=== PATIENT | male | born 1965 | race African-American/Black ===

== ENCOUNTER 2019-04-23 16:32 | Inpatient (IN) ==
[2019-04-23] MEDS ORDERED: DOCUSATE SODIUM 100 MG CAPSULE PO PRN (19:31)
[2019-04-23] MEDS ORDERED: ACETAMINOPHEN 325 MG TABLET PO PRN (19:31)
[2019-04-23] MEDS ORDERED: ONDANSETRON 4 MG/2 ML VIAL IV PRN (19:31)
[2019-04-23] MEDS ORDERED: MORPHINE 4 MG/1 ML VIAL IV ONE (19:52)
[2019-04-23] MEDS ORDERED: MORPHINE 4 MG/1 ML VIAL ONE (19:56)
[2019-04-23] MEDS ORDERED: LIDOCAINE 2% TOP JELLY 20 ML VIAL INTRAURETH ONE (20:27)
[2019-04-23] MEDS ORDERED: LEVOFLOXACIN INJ 500 MG in PREMIX 1 EACH IV ONE (22:34)
[2019-04-24] MEDS ORDERED: LIDOCAINE 2% 5 ML VIAL ONE (00:52)
[2019-04-24] MEDS ORDERED: SEVOFLURANE 1 UNIT/15 MINUTE INH ONE (00:52)
[2019-04-24] MEDS ORDERED: MIDAZOLAM 2 MG/2 ML VIAL ONE (00:52)
[2019-04-24] MEDS ORDERED: fentaNYL 100 MCG/2 ML VIAL ONE (00:52)
[2019-04-24] MEDS ORDERED: PROPOFOL 200 MG/20 ML VIAL IV ONE (00:52)
[2019-04-24] MEDS ORDERED: PHENYLEPHRINE 1 MG/10 ML SYRINGE IV ONE (00:52)
[2019-04-24] MEDS ORDERED: LACTATED RINGERS 1,000 ML IV ONE (00:53)
[2019-04-24] MEDS: SODIUM CHLORIDE 0.9% 1,000 ML IV SCH ×2 (02:30→12:25)
[2019-04-24 02:41] LABS: Apearance,Urine CLEAR (Clear); Bilirubin,Urine Negative (Negative); Blood, Urine Large mg/dL (Negative); Glucose,Urine (UA) Negative (Negative); Ketones,Urine Negative (Negative); Nitrite,Urine Negative (Negative); Protein,Urine Negative; RBC,Urine 102 /HPF (0-4); Urine Color Colorless (Yellow); Urine Specific Gravity 1.006 (1.001-1.035); Urine Urobilinogen < 2.0 EU/DL (0.2-1.0); WBC,Urine 1 /HPF (0-6)
[2019-04-24 05:35] LABS: Basophils % 0.2 % (0.0-0.8); Eosinophils % 0.4 % (0.00-10.9); Hematocrit 31.3 VOL% (42.0-52.0); Hemoglobin 9.8 GM/DL (14.0-18.0); Immature Granulocytes % 0.1 %; Immature Granulocytes Absolute 0.01 #; Lymphocytes # 2.4 10*3/uL (1.4-4.0); Lymphocytes % 29.7 % (21.2-54.2); Mean Corpuscular HGB Conc 31.3 GM/DL (32-36); Mean Corpuscular Volume 95.4 FL (87-102); Mean Platelet Volume 11.8 FL (9.6-12.0); Neutrophils % 61.6 % (38.7-73.9); Platelet Count 152 T/CUMM (130-400); Red Blood Count 3.28 MC/CUMM (3.8-5.5); Red Cell Distribution Width 12.3 % (9.3-17.3); White Blood Count 8.2 T/CUMM (4-12)
[2019-04-24 06:08] LABS: Calcium 7.8 MG/DL (8.5-10.1); Osmolality,Calculated 316.7 MOS/KG (273-304); Risk Ratio 2.79; Thyroid Stimulating Hormone 2.18 uIU/ml (0.358-3.74); VLDL CHOLESTEROL 9.8 MG/DL
[2019-04-24 06:20] LABS: Alanine Aminotransferase 18 U/L (16-61); Albumin 3.5 G/DL (3.4-5.0); Alkaline Phosphatase 49 U/L (45-117); Aspartate Amino Transferase 13 U/L (0-37); Bilirubin,Direct < 0.100 MG/DL (0.0-0.20); Total Protein 6.5 G/DL (6.4-8.3)
[2019-04-24] MEDS: PANTOPRAZOLE 40 MG TABLET PO SCH (08:53)
[2019-04-24] MEDS: hydrALAZINE 20 MG/1 ML VIAL IV PRN (21:06)
[2019-04-25 06:08] LABS: Basophils % 0.4 % (0.0-0.8); Eosinophils # 0.2 10*3/uL (0.0-0.87); Eosinophils % 2.2 % (0.00-10.9); Hematocrit 35.9 VOL% (42.0-52.0); Hemoglobin 11.5 GM/DL (14.0-18.0); Immature Granulocytes % 0.3 %; Immature Granulocytes Absolute 0.02 #; Lymphocytes # 2.9 10*3/uL (1.4-4.0); Mean Platelet Volume 12.1 FL (9.6-12.0); Monocytes % 8.6 % (1.7-12.7); Neutrophils % 51.5 % (38.7-73.9); Platelet Count 163 T/CUMM (130-400); Red Blood Count 3.82 MC/CUMM (3.8-5.5); Red Cell Distribution Width 12.2 % (9.3-17.3); White Blood Count 7.9 T/CUMM (4-12)
[2019-04-25 06:31] LABS: Calcium 8.8 MG/DL (8.5-10.1); Osmolality,Calculated 290.1 MOS/KG (273-304)
[2019-04-25] MEDS: PANTOPRAZOLE 40 MG TABLET PO SCH (08:55)
[2019-04-25] MEDS: SODIUM CHLORIDE 0.9% 1,000 ML IV SCH ×3 (09:57→21:39)
[2019-04-25] MEDS ORDERED: MAGNESIUM SULF RIDER 2 GM in PREMIX 1 EACH IV PRN (11:01)
[2019-04-25] MEDS ORDERED: MAGNESIUM SULF RIDER 4 GM in PREMIX 1 EACH IV PRN (11:01)
[2019-04-25] MEDS: hydrALAZINE 20 MG/1 ML VIAL IV PRN ×2 (11:50→21:39)
[2019-04-25] MEDS: amLODIPine 5 MG TABLET PO SCH (16:50)
[2019-04-26] MEDS: hydrALAZINE 20 MG/1 ML VIAL IV PRN (03:49)
[2019-04-26 05:32] LABS: Basophils % 0.4 % (0.0-0.8); Eosinophils # 0.4 10*3/uL (0.0-0.87); Eosinophils % 4.9 % (0.00-10.9); Hematocrit 37.8 VOL% (42.0-52.0); Hemoglobin 12.2 GM/DL (14.0-18.0); Immature Granulocytes % 0.2 %; Immature Granulocytes Absolute 0.02 #; Lymphocytes # 2.8 10*3/uL (1.4-4.0); Lymphocytes % 30.7 % (21.2-54.2); Mean Corpuscular HGB Conc 32.3 GM/DL (32-36); Mean Corpuscular Volume 93.6 FL (87-102); Mean Platelet Volume 11.2 FL (9.6-12.0); Neutrophils % 55.8 % (38.7-73.9); Platelet Count 168 T/CUMM (130-400); Red Blood Count 4.04 MC/CUMM (3.8-5.5); Red Cell Distribution Width 12.3 % (9.3-17.3)
[2019-04-26 05:44] LABS: Calcium 8.9 MG/DL (8.5-10.1); Osmolality,Calculated 280.5 MOS/KG (273-304)
[2019-04-26] MEDS: PANTOPRAZOLE 40 MG TABLET PO SCH (09:31)
[2019-04-26] MEDS: amLODIPine 5 MG TABLET PO SCH (09:31)
[2019-04-26] MEDS: SODIUM CHLORIDE 0.9% 1,000 ML IV SCH (09:34)
[2019-04-26 15:53] VITALS: BP 165/99
== END 2019-04-26 19:35 | disposition home or self-care (01) | DRG 697 ==
LOC: SUPCPDRO 18:27 → N.5E 18:27 → SUATTDRO 18:27
PROVIDERS: ADMIT Internal Medicine; ATTEND Internal Medicine

== ENCOUNTER 2022-02-11 13:33 | Inpatient (IN) ==
[2022-02-11] MEDS ORDERED: DEXTROSE 10% 250 ML BAG IV PRN (16:02)
[2022-02-11] MEDS ORDERED: hydrALAZINE 20 MG/1 ML VIAL IV PRN (16:02)
[2022-02-11] MEDS ORDERED: GLUCAGON 1 MG VIAL IM PRN (16:02)
[2022-02-11] MEDS ORDERED: ONDANSETRON 4 MG/2 ML VIAL IV PRN (16:02)
[2022-02-11] MEDS ORDERED: DOCUSATE SODIUM 100 MG CAPSULE PO PRN (16:02)
[2022-02-11] MEDS ORDERED: LIDOCAINE 2% TOP JELLY 20 ML VIAL INTRAURETH ONE (17:59)
[2022-02-11] MEDS: INSULIN LISPRO 100 UNIT/ML SUBCUT SCH ×2 (18:00→21:41)
[2022-02-11 18:23] LABS: Hepatitis B Core IgM Quant 0.33 Index; Hepatitis B Surface Ag Quant < 0.10 Index; Hepatitis B Surface Ag Result Non-Reactive (NonReactive); Hepatitis C Virus Ab Quant 0.02 Index; Hepatitis C Virus Ab Result Non-Reactive (NonReactive)
[2022-02-11] MEDS: ALBUTEROL 2.5 MG/3 ML NEB RESP TX SCH (19:10)
[2022-02-11] MEDS: SODIUM CHLORIDE 0.9% 1,000 ML IV SCH (19:42)
[2022-02-11 23:14] LABS: Bacteria,Urine Occasional /HPF (Few); Mucus,Urine Occasional /LPF (Occasional); RBC,Urine 1 /HPF (0-4); Squamous Epithelial Cell,Urine Occasional /HPF (0-10)
[2022-02-11 23:15] LABS: Bilirubin,Urine Negative (Negative); Blood, Urine Trace mg/dL (Negative); Glucose,Urine (UA) Negative (Negative); Ketones,Urine Negative (Negative); Nitrite,Urine Negative (Negative); Protein,Urine Negative (Negative); Urine Appearance Clear (Clear); Urine Color Yellow (Yellow); Urine Urobilinogen 0.2 eU/dL (<2.0); Urine pH 5.5 (4.5-8.0)
[2022-02-12] MEDS: ALBUTEROL 2.5 MG/3 ML NEB RESP TX SCH ×4 (01:43→19:30)
[2022-02-12 05:53] LABS: Basophils % 0.3 % (0.0-0.8); Eosinophils # 0.1 10*3/uL (0.0-0.87); Eosinophils % 1.4 % (0.00-10.9); Hematocrit 25.5 VOL% (42.0-52.0); Hemoglobin 8.1 GM/DL (14.0-18.0); Immature Granulocytes % 0.4 %; Immature Granulocytes Absolute 0.03 #; Lymphocytes # 2.3 10*3/uL (1.4-4.0); Lymphocytes % 29.2 % (21.2-54.2); Mean Corpuscular HGB Conc 31.8 GM/DL (32-36); Mean Corpuscular Volume 92.1 FL (87-102); Mean Platelet Volume 10.8 FL (9.6-12.0); Monocytes # 0.6 10*3/uL (0.11-0.8); Monocytes % 8.2 % (1.7-12.7); Neutrophils % 60.5 % (38.7-73.9); Platelet Count 188 T/CUMM (130-400); Red Blood Count 2.77 MC/CUMM (3.8-5.5); Red Cell Distribution Width 12.7 % (9.3-17.3); White Blood Count 7.8 T/CUMM (4-12)
[2022-02-12] MEDS ORDERED: cefTRIAXone 1,000 MG in SODIUM CHLORIDE 0.9% 100 ML IV ONE (06:00)
[2022-02-12 06:27] LABS: Calcium 8.6 MG/DL (8.5-10.1); Osmolality,Calculated 309.8 MOS/KG (273-304); Potassium 4.6 MMOL/L (3.5-5.1)
[2022-02-12] MEDS ORDERED: PHENYLEPHRINE 1 MG/10 ML SYRINGE IV ONE (06:38)
[2022-02-12] MEDS ORDERED: fentaNYL 100 MCG/2 ML VIAL ONE (06:38)
[2022-02-12] MEDS ORDERED: MIDAZOLAM 2 MG/2 ML VIAL ONE (06:38)
[2022-02-12] MEDS ORDERED: propofoL 200 MG/20 ML VIAL IV ONE (06:38)
[2022-02-12] MEDS ORDERED: SEVOFLURANE 1 UNIT/15 MINUTE INH ONE (06:38)
[2022-02-12] MEDS ORDERED: LIDOCAINE 2% 5 ML VIAL ONE (06:38)
[2022-02-12] MEDS ORDERED: ACETAMINOPHEN INJ 1,000 MG/100 ML VIAL IV ONE (07:16)
[2022-02-12] MEDS: INSULIN LISPRO 100 UNIT/ML SUBCUT SCH ×4 (07:45→20:49)
[2022-02-12 07:47] LABS: Ferritin 395.3 ng/mL (26-388)
[2022-02-12 07:48] LABS: Folate 8.56 NG/ML (5.38-24.0)
[2022-02-12] MEDS: PANTOPRAZOLE 40 MG TABLET PO SCH (09:56)
[2022-02-12] MEDS: SODIUM CHLORIDE 0.9% 1,000 ML IV SCH ×2 (09:57→19:45)
[2022-02-12] MEDS: CHOLECALCIFEROL 5,000 UNIT TABLET PO SCH (09:58)
[2022-02-12 12:52] LABS: Calcium 8.4 MG/DL (8.5-10.1); Osmolality,Calculated 309.1 MOS/KG (273-304); Potassium 4.5 MMOL/L (3.5-5.1)
[2022-02-12] MEDS ORDERED: amLODIPine 5 MG TABLET PO SCH (21:00)
[2022-02-13] MEDS: ALBUTEROL 2.5 MG/3 ML NEB RESP TX SCH ×4 (00:32→19:30)
[2022-02-13] MEDS: SODIUM CHLORIDE 0.9% 1,000 ML IV SCH ×4 (05:09→22:56)
[2022-02-13 05:26] LABS: Basophils % 0.3 % (0.0-0.8); Eosinophils # 0.2 10*3/uL (0.0-0.87); Eosinophils % 2.5 % (0.00-10.9); Hematocrit 26.8 VOL% (42.0-52.0); Hemoglobin 8.5 GM/DL (14.0-18.0); Immature Granulocytes % 0.3 %; Immature Granulocytes Absolute 0.03 #; Lymphocytes # 3.2 10*3/uL (1.4-4.0); Lymphocytes % 35.9 % (21.2-54.2); Mean Corpuscular HGB Conc 31.7 GM/DL (32-36); Mean Corpuscular Volume 93.1 FL (87-102); Mean Platelet Volume 9.8 FL (9.6-12.0); Monocytes # 0.6 10*3/uL (0.11-0.8); Platelet Count 180 T/CUMM (130-400); Red Blood Count 2.88 MC/CUMM (3.8-5.5); Red Cell Distribution Width 12.7 % (9.3-17.3); White Blood Count 8.9 T/CUMM (4-12)
[2022-02-13 05:54] LABS: Calcium 8.1 MG/DL (8.5-10.1); Potassium 4.6 MMOL/L (3.5-5.1)
[2022-02-13] MEDS ORDERED: MAGNESIUM SULF RIDER 2 GM/50 ML PREMIX IV ONE ×2 (07:39→08:00)
[2022-02-13] MEDS: CHOLECALCIFEROL 5,000 UNIT TABLET PO SCH (08:41)
[2022-02-13] MEDS: PANTOPRAZOLE 40 MG TABLET PO SCH (08:41)
[2022-02-13] MEDS: INSULIN LISPRO 100 UNIT/ML SUBCUT SCH ×4 (09:55→22:06)
[2022-02-13] MEDS: amLODIPine 5 MG TABLET PO SCH (22:02)
[2022-02-13] MEDS: ACETAMINOPHEN 325 MG TABLET PO PRN (23:02)
[2022-02-14] MEDS: ALBUTEROL 2.5 MG/3 ML NEB RESP TX SCH ×2 (00:24→08:02)
[2022-02-14] MEDS: SODIUM CHLORIDE 0.9% 1,000 ML IV SCH ×3 (06:40→20:45)
[2022-02-14 06:48] LABS: Basophils % 0.3 % (0.0-0.8); Eosinophils # 0.3 10*3/uL (0.0-0.87); Eosinophils % 3.8 % (0.00-10.9); Hematocrit 26.1 VOL% (42.0-52.0); Hemoglobin 8.5 GM/DL (14.0-18.0); Immature Granulocytes % 0.4 %; Immature Granulocytes Absolute 0.03 #; Lymphocytes # 2.6 10*3/uL (1.4-4.0); Lymphocytes % 36.6 % (21.2-54.2); Mean Corpuscular HGB Conc 32.6 GM/DL (32-36); Mean Corpuscular Volume 90.9 FL (87-102); Mean Platelet Volume 10.9 FL (9.6-12.0); Monocytes # 0.5 10*3/uL (0.11-0.8); Monocytes % 7.4 % (1.7-12.7); Neutrophils % 51.5 % (38.7-73.9); Platelet Count 174 T/CUMM (130-400); Red Blood Count 2.87 MC/CUMM (3.8-5.5); Red Cell Distribution Width 12.7 % (9.3-17.3); White Blood Count 7.1 T/CUMM (4-12)
[2022-02-14 06:50] LABS: Calcium 7.9 MG/DL (8.5-10.1); Osmolality,Calculated 293.3 MOS/KG (273-304)
[2022-02-14] MEDS: PANTOPRAZOLE 40 MG TABLET PO SCH (09:54)
[2022-02-14] MEDS: CHOLECALCIFEROL 5,000 UNIT TABLET PO SCH (09:54)
[2022-02-14] MEDS: INSULIN LISPRO 100 UNIT/ML SUBCUT SCH ×4 (10:16→20:48)
[2022-02-14] MEDS: amLODIPine 5 MG TABLET PO SCH (20:51)
[2022-02-15] MEDS: SODIUM CHLORIDE 0.9% 1,000 ML IV SCH ×5 (03:09→21:15)
[2022-02-15 06:15] LABS: Basophils % 0.3 % (0.0-0.8); Eosinophils # 0.4 10*3/uL (0.0-0.87); Hematocrit 24.5 VOL% (42.0-52.0); Immature Granulocytes % 0.4 %; Immature Granulocytes Absolute 0.03 #; Lymphocytes # 2.4 10*3/uL (1.4-4.0); Lymphocytes % 33.3 % (21.2-54.2); Mean Corpuscular HGB Conc 32.7 GM/DL (32-36); Mean Corpuscular Volume 90.1 FL (87-102); Mean Platelet Volume 10.5 FL (9.6-12.0); Monocytes # 0.6 10*3/uL (0.11-0.8); Monocytes % 8.4 % (1.7-12.7); Neutrophils % 52.6 % (38.7-73.9); Platelet Count 162 T/CUMM (130-400); Red Blood Count 2.72 MC/CUMM (3.8-5.5); Red Cell Distribution Width 12.5 % (9.3-17.3); White Blood Count 7.2 T/CUMM (4-12)
[2022-02-15 06:40] LABS: Calcium 7.7 MG/DL (8.5-10.1); Osmolality,Calculated 289.4 MOS/KG (273-304); Potassium 3.9 MMOL/L (3.5-5.1)
[2022-02-15] MEDS ORDERED: MAGNESIUM SULF RIDER 4 GM/100 ML PREMIX IV ONE (07:43)
[2022-02-15] MEDS: INSULIN LISPRO 100 UNIT/ML SUBCUT SCH ×4 (08:40→21:22)
[2022-02-15] MEDS: PANTOPRAZOLE 40 MG TABLET PO SCH (08:40)
[2022-02-15] MEDS: CHOLECALCIFEROL 5,000 UNIT TABLET PO SCH (08:41)
[2022-02-15] MEDS: amLODIPine 5 MG TABLET PO SCH (21:21)
[2022-02-16] MEDS: SODIUM CHLORIDE 0.9% 1,000 ML IV SCH ×4 (02:12→23:47)
[2022-02-16 06:38] LABS: Basophils % 0.3 % (0.0-0.8); Eosinophils # 0.3 10*3/uL (0.0-0.87); Eosinophils % 4.3 % (0.00-10.9); Hematocrit 23.7 VOL% (42.0-52.0); Hemoglobin 7.9 GM/DL (14.0-18.0); Immature Granulocytes % 0.5 %; Immature Granulocytes Absolute 0.03 #; Lymphocytes # 2.2 10*3/uL (1.4-4.0); Mean Corpuscular HGB Conc 33.3 GM/DL (32-36); Mean Corpuscular Volume 89.1 FL (87-102); Mean Platelet Volume 10.9 FL (9.6-12.0); Monocytes # 0.5 10*3/uL (0.11-0.8); Neutrophils % 50.9 % (38.7-73.9); Platelet Count 167 T/CUMM (130-400); Red Blood Count 2.66 MC/CUMM (3.8-5.5); Red Cell Distribution Width 12.3 % (9.3-17.3); White Blood Count 6.2 T/CUMM (4-12)
[2022-02-16 07:04] LABS: Calcium 7.9 MG/DL (8.5-10.1); Osmolality,Calculated 288.3 MOS/KG (273-304); Potassium 3.7 MMOL/L (3.5-5.1)
[2022-02-16] MEDS: INSULIN LISPRO 100 UNIT/ML SUBCUT SCH ×3 (07:49→17:31)
[2022-02-16] MEDS: PANTOPRAZOLE 40 MG TABLET PO SCH (09:41)
[2022-02-16] MEDS: CHOLECALCIFEROL 5,000 UNIT TABLET PO SCH (09:41)
[2022-02-16] MEDS ORDERED: SODIUM CHLORIDE 0.9% 1,000 ML IV PRN (11:02)
[2022-02-16 17:49] LABS: Hematocrit 31.7 VOL% (42.0-52.0)
[2022-02-16 17:50] LABS: Hemoglobin 10.5 GM/DL (14.0-18.0)
[2022-02-16] MEDS: amLODIPine 5 MG TABLET PO SCH (21:42)
[2022-02-17] MEDS: ACETAMINOPHEN 325 MG TABLET PO PRN (04:04)
[2022-02-17 05:57] LABS: Basophils % 0.3 % (0.0-0.8); Eosinophils # 0.3 10*3/uL (0.0-0.87); Eosinophils % 3.3 % (0.00-10.9); Hematocrit 28.8 VOL% (42.0-52.0); Hemoglobin 9.6 GM/DL (14.0-18.0); Immature Granulocytes % 0.6 %; Immature Granulocytes Absolute 0.05 #; Lymphocytes # 2.6 10*3/uL (1.4-4.0); Mean Corpuscular HGB Conc 33.3 GM/DL (32-36); Mean Corpuscular Volume 88.9 FL (87-102); Mean Platelet Volume 12.3 FL (9.6-12.0); Monocytes # 0.7 10*3/uL (0.11-0.8); Monocytes % 7.9 % (1.7-12.7); Neutrophils % 58.9 % (38.7-73.9); Platelet Count 102 T/CUMM (130-400); Red Blood Count 3.24 MC/CUMM (3.8-5.5); Red Cell Distribution Width 12.2 % (9.3-17.3); White Blood Count 8.9 T/CUMM (4-12)
[2022-02-17 06:39] LABS: Calcium 8.2 MG/DL (8.5-10.1); Osmolality,Calculated 283.5 MOS/KG (273-304); Potassium 3.6 MMOL/L (3.5-5.1)
[2022-02-17] MEDS: SODIUM CHLORIDE 0.9% 1,000 ML IV SCH ×3 (07:13→13:22)
[2022-02-17] MEDS ORDERED: MAGNESIUM SULF RIDER 2 GM/50 ML PREMIX IV ONE (08:00)
[2022-02-17] MEDS: PANTOPRAZOLE 40 MG TABLET PO SCH (09:52)
[2022-02-17] MEDS: CHOLECALCIFEROL 5,000 UNIT TABLET PO SCH (09:52)
[2022-02-17 12:27] VITALS: BP 150/96
== END 2022-02-17 13:49 | disposition home or self-care (01) | DRG 697 ==
LOC: SUATTDRO 15:21 → N.3E 15:21
PROVIDERS: ADMIT Internal Medicine; ATTEND Internal Medicine

== ENCOUNTER 2022-02-25 09:25 | Observation (INO) ==
[2022-02-25] MEDS ORDERED: SODIUM CHLORIDE 0.9% 1,000 ML IV STA (11:43)
[2022-02-25 12:32] LABS: Basophils % 0.3 % (0.0-0.8); Eosinophils # 0.1 10*3/uL (0.0-0.87); Eosinophils % 0.5 % (0.00-10.9); Hematocrit 32.7 VOL% (42.0-52.0); Hemoglobin 10.6 GM/DL (14.0-18.0); Immature Granulocytes % 0.8 %; Lymphocytes # 1.5 10*3/uL (1.4-4.0); Lymphocytes % 11.5 % (21.2-54.2); Mean Corpuscular HGB Conc 32.4 GM/DL (32-36); Mean Corpuscular Volume 92.1 FL (87-102); Mean Platelet Volume 10.6 FL (9.6-12.0); Monocytes # 0.6 10*3/uL (0.11-0.8); Monocytes % 4.7 % (1.7-12.7); Neutrophils % 82.2 % (38.7-73.9); Platelet Count 282 T/CUMM (130-400); Red Blood Count 3.55 MC/CUMM (3.8-5.5); Red Cell Distribution Width 12.8 % (9.3-17.3); White Blood Count 12.7 T/CUMM (4-12)
[2022-02-25 12:41] LABS: Bacteria,Urine Occasional /HPF (Few); Bilirubin,Urine Negative (Negative); Blood, Urine Trace mg/dL (Negative); Glucose,Urine (UA) Negative (Negative); Hyaline Casts,Urine 1 /LPF (0-3); Ketones,Urine Negative (Negative); Nitrite,Urine Negative (Negative); Protein,Urine Negative (Negative); RBC,Urine 2 /HPF (0-4); Urine Appearance Clear (Clear); Urine Color Yellow (Yellow); Urine Urobilinogen 0.2 eU/dL (<2.0); Urine pH 5.5 (4.5-8.0)
[2022-02-25 12:43] LABS: PT Patient Result 10.9 SECS (10.1-12.1)
[2022-02-25 12:55] LABS: Alanine Aminotransferase 31 U/L (16-61); Albumin 3.9 G/DL (3.4-5.0); Alkaline Phosphatase 66 U/L (45-117); Aspartate Amino Transferase 15 U/L (0-37); Bilirubin,Total < 0.39 MG/DL (0.20-1.00); Blood Urea Nitrogen 33 MG/DL (7-18); Calcium 9.5 MG/DL (8.5-10.1); Carbon Dioxide 23 MMOL/L (21-32); Chloride 105 MMOL/L (98-107); Glucose 98 MG/DL (74-106); Potassium 4.2 MMOL/L (3.5-5.1); Sodium 136 MMOL/L (136-145)
[2022-02-25 13:06] LABS: Barbiturates Screen,Urine Negative (Negative); Benzodiazepines Screen,Urine Negative (Negative); Cannabinoid Screen,Urine Negative (Negative); Opiate Screen,Urine Negative (Negative); Phencyclidine Screen,Urine Negative (Negative)
[2022-02-25] MEDS ORDERED: DEXTROSE 10% 250 ML BAG IV PRN (14:58)
[2022-02-25] MEDS ORDERED: GLUCAGON 1 MG VIAL IM PRN (14:58)
[2022-02-25] MEDS ORDERED: ONDANSETRON 4 MG/2 ML VIAL IV PRN (15:05)
[2022-02-25] MEDS ORDERED: hydrALAZINE 20 MG/1 ML VIAL IV PRN (15:13)
[2022-02-25] MEDS: SODIUM CHLORIDE 0.9% 1,000 ML IV SCH (15:45)
[2022-02-25] MEDS: PANTOPRAZOLE 40 MG TABLET PO SCH (15:50)
[2022-02-25] MEDS ORDERED: ENOXAPARIN 40 MG/0.4 ML SYRINGE SUBCUT SCH (16:00)
[2022-02-25] MEDS ORDERED: INFLUENZA VIRUS VACCINE 0.5 ML SYRINGE IM ONE (17:25)
[2022-02-25] MEDS ORDERED: amLODIPine 5 MG TABLET PO SCH (20:00)
[2022-02-26] MEDS: SODIUM CHLORIDE 0.9% 1,000 ML IV SCH ×2 (00:23→13:01)
[2022-02-26 08:50] LABS: Basophils % 0.4 % (0.0-0.8); Eosinophils # 0.2 10*3/uL (0.0-0.87); Eosinophils % 2.7 % (0.00-10.9); Hematocrit 29.8 VOL% (42.0-52.0); Hemoglobin 9.4 GM/DL (14.0-18.0); Immature Granulocytes % 0.4 %; Immature Granulocytes Absolute 0.03 #; Lymphocytes # 2.9 10*3/uL (1.4-4.0); Lymphocytes % 35.7 % (21.2-54.2); Mean Corpuscular HGB Conc 31.5 GM/DL (32-36); Mean Corpuscular Volume 93.1 FL (87-102); Mean Platelet Volume 10.8 FL (9.6-12.0); Monocytes # 0.7 10*3/uL (0.11-0.8); Monocytes % 8.9 % (1.7-12.7); Neutrophils % 51.9 % (38.7-73.9); Platelet Count 270 T/CUMM (130-400); White Blood Count 8.1 T/CUMM (4-12)
[2022-02-26] MEDS: PANTOPRAZOLE 40 MG TABLET PO SCH (08:59)
[2022-02-26 09:17] LABS: Albumin 3.4 G/DL (3.4-5.0); Bilirubin,Total 0.4 MG/DL (0.20-1.00); Calcium 9.2 MG/DL (8.5-10.1); Osmolality,Calculated 284.5 MOS/KG (273-304); Potassium 4.4 MMOL/L (3.5-5.1); Total Protein 7.3 G/DL (6.4-8.2)
[2022-02-26 15:11] VITALS: BP 162/98
== END 2022-02-26 15:18 | disposition home or self-care (01) ==
LOC: EDBD → EDUNIT# → N.ED 09:25 → N.EDINP 09:25 → N.TELEN 16:39
PROVIDERS: ADMIT Family Medicine; ATTEND Family Medicine